=== PATIENT | female | born 1965 | race Two or more races ===

== ENCOUNTER → 2024-04-22 | Outpatient (CLI) | payer BC, SELFPAY ==
--- NOTE | 2024-04-22 09:30 | XR_ITS ---
Examination: Breast ultrasound complete, bilateral Date and time of exam: April 22, 2024 0945 hours INDICATIONS: Patient states bilateral breast pain beginning one month ago Technique: Real-time grayscale ultrasonographic imaging bilateral breasts, including all 4 quadrants as well as nipple retroareolar and axillary regions. Findings: Sonographic images right breast 12:00 hyperechoic mass 8 x 4 x 8 mm Sonographic images left breast No cystic or solid mass IMPRESSION: BI-RADS Category 3: Probably benign findings One additional 6 month right breast sonogram follow-up is needed to document stability of 12:00 nodule described above
== END | disposition home or self-care (01) ==
LOC: CDIM 09:29
PROVIDERS: Referring Provider Registered Nurse Community Health; Visit Provider Registered Nurse Community Health
DX: N63.15 Unspecified lump in the right breast, overlapping quadrants (principal)
CPT/HCPCS: 76641

== ENCOUNTER → 2024-06-23 | Outpatient (CLI) | payer BC, SELFPAY ==
--- NOTE | 2024-06-23 13:46 | XR_ITS ---
Examination: Thoracic spine 3 views TECHNIQUE: AP lateral coned lateral upper dorsal spine 3 views Exam date and time: June 23, 2024 1409 hours INDICATIONS: Back pain 2 years. FINDINGS: Moderate osteopenia. Mild kyphosis dorsal spine secondary to mild chronic osteoporotic compressions mid dorsal vertebral bodies Mild to moderate diffuse thoracic disc narrowing Incidental note moderate to advanced degenerative disc disease C4-C5, C5-C6 IMPRESSION: Mild to moderate diffuse thoracic degenerative disc disease
--- NOTE | 2024-06-23 13:46 | XR_ITS ---
Examination: Foot bilateral, 6 views Technique: AP, oblique, lateral views each foot total 6 views Date and time of exam: June 23, 2024 1353 hours INDICATIONS: Bilateral foot pain beginning 2 years ago. FINDINGS: Moderate osteopenia Bilateral mild bunion deformity Bilateral mild to moderate narrowing first metatarsophalangeal joints No erosive arthritis involving either foot No fracture or dislocation involving either foot Bilateral minimal ossification in the Achilles insertions into the calcaneus IMPRESSION: Moderate osteopenia Mild bilateral bunion deformities Bilateral mild to moderate narrowing first metatarsophalangeal joints
--- NOTE | 2024-06-23 13:46 | XR_ITS ---
Examination: Bilateral hands, 6 views. Technique: AP, Oblique, Lateral each hand total 6 views Date and time of exam: June 23, 2024 at 1353 hours INDICATIONS: Bilateral hand pain 2 years. FINDINGS: Bilateral moderate juxta-articular bone demineralization Bilateral nonspecific mild to moderate diffuse narrowing joints of the wrists and hands No erosive arthritis No fractures No cortical bone destructions Bilateral mild to moderate osteoarthritis first carpometacarpal joints IMPRESSION: Juxta-articular moderate bone demineralization Bilateral nonspecific mild to moderate diffuse narrowing joints of the wrists and hands Bilateral mild to moderate osteoarthritis first carpometacarpal joints
--- NOTE | 2024-06-23 13:46 | XR_ITS ---
Exam: elbow bilateral, 6 views Technique: Elbow AP, oblique each elbow total 6 views Exam date and time: June 23, 2024 1333 hours INDICATIONS: Bilateral elbow pain beginning 2 years ago. FINDINGS: Moderate osteopenia No fracture or dislocation involving either elbow No erosive or other significant arthritic change involving either elbow IMPRESSION: Moderate osteopenia No erosive or other significant arthritic change involving either elbow.
--- NOTE | 2024-06-23 13:46 | XR_ITS ---
Shoulder bilateral, 6 views Technique: Shoulder AP internal rotation, AP external rotation, Y view each shoulder total 6 views Exam date and time :June 23, 2024 1353 hours INDICATIONS: Bilateral shoulder pain beginning 2 years ago FINDINGS: Significant osteopenia Bilateral mild to moderate narrowing glenohumeral joints No shoulder fractures or shoulder dislocation IMPRESSION: Bilateral mild to moderate narrowing glenohumeral joints No shoulder fractures or dislocations
--- NOTE | 2024-06-23 14:20 | XR_ITS ---
Examination: Bone densitometry Date and time of exam:09/23/2024 1401 hours INDICATIONS: Menopause age 55 vitamin D 3 years personal history osteopenia Technique: Lumbar spine and hip total bone mineralization values of an calculated. Peak reference and age match control results have been displayed. Findings: Lumbar spine total bone mineralization is0.962 gm/cm2. This is 0.8 standard deviations below peak reference. This is 0.6 standard deviations above age-matched controls. Hip total bone mineralization is 0.853 gm/cm2 This is 0.8 standard deviations below peak reference. This is 0.1 standard deviations above age-matched controls Impression: There is normal mineralization based on lumbar spine measurements. There is osteoporosis based on hip measurements Lumbar mineralization is decreased 9.0% compared with May 16, 2015 Hip mineralization is increase 4.4% compared with 05/16/2015
== END | disposition home or self-care (01) ==
LOC: CDIM 13:34
PROVIDERS: PCP Internal Medicine Rheumatology; Referring Provider Internal Medicine Rheumatology; Visit Provider Internal Medicine Rheumatology
DX: Z13.820 Encounter for screening for osteoporosis (principal); M81.0 Age-related osteoporosis without current pathological fracture; M25.812 Other specified joint disorders, left shoulder; M25.811 Other specified joint disorders, right shoulder; M18.0 Bilateral primary osteoarthritis of first carpometacarpal joints; M25.832 Other specified joint disorders, left wrist; M25.831 Other specified joint disorders, right wrist; M85.88 Other specified disorders of bone density and structure, other site; M51.34 Other intervertebral disc degeneration, thoracic region; M85.872 Other specified disorders of bone density and structure, left ankle and foot; M85.871 Other specified disorders of bone density and structure, right ankle and foot; M21.612 Bunion of left foot; M21.611 Bunion of right foot; M25.872 Other specified joint disorders, left ankle and foot; M25.871 Other specified joint disorders, right ankle and foot
CPT/HCPCS: 72072; 73030; 73080; 73130; 73630; 77080

== ENCOUNTER → 2024-11-05 | Outpatient (CLI) | payer BC, SELFPAY ==
--- NOTE | 2024-11-05 09:43 | XR_ITS ---
EXAMINATION: Cervical spine, 5 views Technique: Cervical spine AP, AP odontoid, lateral, bilateral obliques, 5 views Exam date and time: November 05, 2024 0946 hours INDICATIONS: Neck pain beginning 5 years ago. FINDINGS: Straightening normal cervical lordosis. No cervical fracture. Intact odontoid. Moderate to advanced degenerative disc disease C4-C5, C5-C6 with mild to moderate bilateral neural foraminal stenosis at these levels IMPRESSION: Moderate to advanced degenerative disc disease C4-C5, C5-C6
--- NOTE | 2024-11-05 09:43 | XR_ITS ---
Examination: Bilateral hips, AP pelvis, 5 views Technique: AP, lateral views both hips, AP pelvis, 5 views Exam date and time: November 05, 2024 0946 hours INDICATIONS: Bilateral hip pain beginning 5 years ago. FINDINGS: Mild to moderate right hip osteoarthritis Mild left hip osteoarthritis No hip or pelvic fracture No hip dislocations IMPRESSION: Mild to moderate right hip osteoarthritis Mild left hip osteoarthritis
--- NOTE | 2024-11-05 09:43 | XR_ITS ---
Examination: Lumbar spine, 5 views Technique: Lumbar spine AP, lateral, coned lateral lower lumbar spine, bilateral obliques 5 views Exam date and time: November 05, 2024 0946 hours, comparison the 07/09/2021 INDICATIONS: Lower back pain 5 years. FINDINGS: Moderate osteopenia. Moderate to advanced diffuse facet arthropathy No lumbar fracture Mild lumbar spondylosis Mild to moderate diffuse lumbar disc are most prominent at L5-S1 IMPRESSION: Mild to moderate diffuse lumbar degenerative disc disease, most prominent at L5-S1
== END | disposition home or self-care (01) ==
PROVIDERS: PCP Registered Nurse Community Health; Referring Provider Internal Medicine Rheumatology; Visit Provider Nurse Practitioner Family
DX: M51.360 Other intervertebral disc degeneration, lumbar region with discogenic back pain only (principal); M51.370 Other intervertebral disc degeneration, lumbosacral region with discogenic back pain only; M16.0 Bilateral primary osteoarthritis of hip; M50.321 Other cervical disc degeneration at C4-C5 level
CPT/HCPCS: 72050; 72110; 73523

== ENCOUNTER → 2024-11-26 | Outpatient (CLI) | payer BC, SELFPAY ==
--- NOTE | 2024-11-26 14:30 | XR_ITS ---
Examination: Breast ultrasound, unilateral, right complete Date and time of exam: November 26, 2024, 1436 hours INDICATIONS: Bilateral breast sonography April 22, 2024 right breast 12:00 nodule 8 x 8 mm Technique: Real-time reese scale ultrasonographic imaging performed right breast including all 4 quadrants as well as nipple retroareolar and axillary region. Findings: 12:00 hypoechoic nodule 5 x 4 mm right breast IMPRESSION: BI-RADS Category 2: Benign findings
== END | disposition home or self-care (01) ==
LOC: CDIM 14:21
PROVIDERS: PCP Registered Nurse Community Health; Referring Provider Registered Nurse Community Health; Visit Provider Registered Nurse Community Health
DX: N63.15 Unspecified lump in the right breast, overlapping quadrants (principal)
CPT/HCPCS: 76641

== ENCOUNTER → 2024-12-03 | Outpatient (CLI) | payer BC, SELFPAY ==
--- NOTE | 2024-12-03 09:35 | XR_ITS ---
EXAMINATION: Left breast sonography TECHNIQUE: Sonographic images left breast including retroareolar and axillary region Date and time: December 03, 2024 1946 hours INDICATIONS: Left breast pain beginning 2 weeks ago, palpable masses in the 2:00 and 8 o'clock position by physician this month on clinical breast examination FINDINGS: No cystic or solid masses IMPRESSION: BI-RADS Category 0: Incomplete: Need additional imaging evaluation Recommend diagnostic mammography follow-up
== END | disposition home or self-care (01) ==
PROVIDERS: PCP Registered Nurse Community Health; Referring Provider Registered Nurse Community Health; Visit Provider Registered Nurse Community Health
DX: R92.8 Other abnormal and inconclusive findings on diagnostic imaging of breast (principal)
CPT/HCPCS: 76641